=== PATIENT | female | born 1945 | race Caucasian/White ===

== ENCOUNTER 2016-12-22 12:22 | Emergency (ER) | payer OTHER, BC, MEDICARE ==
[~2016-12-22] VITALS: Ht 170.2 cm; Wt 90.0 kg
[2016-12-22 12:30] VITALS: BP 181/79; PULSE 68; RESP 16; TEMP 97.3; O2SAT 100
[2016-12-22] MEDS ORDERED: ASPI81CH CHEW (13:40)
[2016-12-22] MEDS ORDERED: VITA-136 (13:40)
[2016-12-22] MEDS ORDERED: ATOR10TA15 PO (13:40)
[2016-12-22] MEDS ORDERED: LISI20TA3 PO (13:40)
[2016-12-22] MEDS ORDERED: LEVO100T5 PO (13:40)
[2016-12-22] MEDS ORDERED: ALPR0.5T3 PO (13:40)
--- NOTE | 2016-12-22 13:56 | PD ---
HPI Chief Complaint: Injury Time Seen by Provider: 13:54 Travel History International Travel<30 days: No Contact w/Intl Traveler<30days: No Traveled to known affect area: No History of Present Illness HPI 71-year-old female with chief complaint of right anterior knee pain. Patient reports yesterday she had a slip and fall which caused her to twist the knee and then fall onto the knee. She denies numbness/tingling/weakness of extremity. She denies falling to the ground. She did not hit her head. There was no loss of consciousness. Patient is not anticoagulated. Pain is localized to the lateral aspect of the knee. Worse with weightbearing and flexion. Relieved with rest. Pain scale 4/10. PFSH Past Medical History Anxiety: Yes High Cholesterol: Yes Hypertension: Yes Thyroid Disease: Yes Tetanus Vaccination: Unknown Influenza Vaccination: Yes ?: Not Past Surgical History Cholecystectomy: Yes Hysterectomy: Yes Social History Alcohol Use: No Tobacco Use: No Substance Use: No Allergies-Medications (Allergen,Severity, Reaction): Coded Allergies: morphine (Verified Allergy, Intermediate, Itching, 12/22/16) Reported Meds & Prescriptions Reported Meds & Active Scripts Active Cane/Wood/Ladies Standard (Device) 1 Mis Mis Ea .ROUTE DIRECTED Reported Vitamin E (Vitamin E Acetate) 400 Unit Capsule Atorvastatin (Atorvastatin Calcium) 10 Mg Tab 10 Mg PO HS Levothyroxine (Levothyroxine Sodium) 100 Mcg Tab 100 Mcg PO DAILY Alprazolam 0.5 Mg Tab 0.5 Mg PO HS Aspirin 81 Mg Chew 81 Mg CHEW DAILY Lisinopril-Hctz 20-25 Mg Tab 1 Tab PO DAILY Review of Systems Except as stated in HPI: all other systems reviewed are Neg Physical Exam Narrative GENERAL: Well-nourished, well-developed patient. SKIN: Focused skin assessment warm/dry. HEAD: Normocephalic. Atraumatic EYES: No scleral icterus. No injection or drainage. NECK: Supple, trachea midline. No JVD or lymphadenopathy. CARDIOVASCULAR: Regular rate and rhythm without murmurs, gallops, or rubs. RESPIRATORY: Breath sounds equal bilaterally. No accessory muscle use. GASTROINTESTINAL: Abdomen soft, non-tender, nondistended. MUSCULOSKELETAL: No cyanosis, or edema. Right lower extremities: Patient has anterior lateral tenderness to the knee. The joint is stable. There is no deformity. Patient has limited flexion due to pain. 2+ distal pulses. Normal sensation. Brisk cap refill. BACK: Nontender without obvious deformity. No CVA tenderness. Data Data Last Documented VS Vital Signs Date Time Temp Pulse Resp B/P (MAP) Pulse Ox O2 Delivery O2 Flow Rate FiO2 12/22/16 12:30 97.3 68 16 181/79 (113) 100 Orders Orders Knee, Complete (4vws) (12/22/16 ) Splint Or Brace Apply/Monitor (12/22/16 14:02) Ketorolac Inj (Toradol Inj) (12/22/16 14:15) [facility] Medical Decision Making Medical Screen Exam Complete: Yes Emergency Medical Condition: Yes Differential Diagnosis Knee sprain versus strain versus fracture Narrative Course 71-year-old female with chief complaint of right anterior knee pain. Patient reports yesterday she had a sudden fall which caused her to twist the knee and then fall onto the knee. She denies numbness/tingling/weakness of extremity. On exam she has anterior knee pain. The joint is stable. X-ray pending X-ray of the right knee negative for fracture. Evidence of osteoarthritis. Patient will be treated for knee sprain. Ovi wrap and crutches. Patient instructed to follow-up with her PCP orthopedic doctor. Take [id number] NSAIDs as needed for pain. Patient verbalizes understanding and agrees to plan. Diagnosis Primary Impression: Knee sprain Qualified Codes: S83.421A - Sprain of lateral collateral ligament of right knee, initial encounter Referrals: Primary Care Physician Additional Instructions: Ready Ovi wrap as directed. Ice and elevate the extremity. Use crutches or cane as needed until weightbearing as possible. Take [id number] Motrin [id number] milligrams every 6-8 hours as needed for pain. Follow-up with her primary care doctor or orthopedic doctor for recheck Scripts Cane/Wood/Ladies Standard (Cane/Wood/Ladies Standard) 1 Mis Mis EA .ROUTE DIRECTED, #1 Prov: Erica Tyler 12/22/16 Disposition: 01 DISCHARGE HOME Condition: Stable Erica Tyler Dec 22, 2016 13:56
--- NOTE | 2016-12-22 13:58 | RADRPT ---
EXAM DATE/TIME: 12/22/2016 13:35 [facility] COMPARISON: No previous studies available for comparison. INDICATIONS : Slipped on a wet floor and fell last night. Pain only when weight-bearing. MEDICAL HISTORY : None. SURGICAL HISTORY : None. ENCOUNTER: Initial ACUITY: 1 day PAIN SCORE: 5/10 LOCATION: Right Knee. FINDINGS: The exam demonstrates osteoarthritic changes in the medial joint compartment and the patellofemoral j oint. There is no joint effusion. There is relative sparing of the lateral compartment. No acute frac ture or destructive lesion is identified. CONCLUSION: 1. Osteoarthritis as above. Rubén Bhandari MD on December 22, 2016 at 13:56 Board Certified Radiologist. This report was verified electronically.
[2016-12-22] MEDS ORDERED: CANE/WOOD/LADIE1 MI1 (14:05)
[2016-12-22] MEDS ORDERED: KETOROLAC TROMETHAMINE 60 MG/2 ML (IM) VIAL IM ONE (14:15)
== END 2016-12-22 14:25 | disposition home or self-care (01) ==
LOC: PHEFT 12:22
DX: S83.421A Sprain of lateral collateral ligament of right knee, initial encounter (principal); W01.0XXA Fall on same level from slipping, tripping and stumbling without subsequent striking against object, initial encounter
CPT/HCPCS: 73564; 99283